=== PATIENT | female | born 1975 | race Two or more races ===

== ENCOUNTER 2024-10-26 03:19 | Emergency (ER) | payer OTHER ==
[~2024-10-26] VITALS: Ht 157.5 cm; Wt 72.6 kg
[2024-10-26] MEDS ORDERED: 0.9 % SODIUM CHLORIDE 1,000 ML IV STA (04:23)
[2024-10-26 06:25] LABS: HEMATOCRIT 39.1 % (36.0-45.00); HEMOGLOBIN 13.4 g/dL (12.0-15.00); MEAN CELL VOLUME 87.4 fL (80.00-100.00); MEAN CORPUSCULAR HEMOGLOBIN 29.9 pg (27.00-32.0); MEAN CORPUSCULAR HGB CONC 34.2 g/dl (32.0-36.0); PLATELET COUNT 305 K/uL (150-450); RED BLOOD COUNT 4.47 M/uL (4.00-6.00); RED CELL DISTRIBUTION WIDTH 12.6 % (11.5-14.5)
[2024-10-26 07:57] LABS: ALBUMIN 3.6 gm/dL (3.4-5.0); BILIRUBIN TOTAL 0.49 mg/dL (0.3-1.2); CALCIUM 9.2 mg/dL (8.5-10.1); CREATININE SERUM 0.58 mg/dL (0.55-1.02); GFR 110.04; GLOBULINA 3.8 G/DL (2.4-3.5); POTASSIUM 3.5 mEq/L (3.5-5.1); TOTAL PROTEIN 7.4 gm/dL (6.4-8.2)
== END 2024-10-26 08:34 | disposition home or self-care (01) ==
LOC: ER 03:19
DX: R19.7 Diarrhea, unspecified (principal); E11.9 Type 2 diabetes mellitus without complications